=== PATIENT | male | born 1980 | race Asian ===

== ENCOUNTER 2018-04-27 11:19 | Inpatient (IN) | payer OTHER ==
[~2018-04-27] VITALS: Ht 165.1 cm; Wt 67.6 kg
[2018-04-27] MEDS ORDERED: KETOROLAC TROMETHAMINE 30 MG/ML VIAL IV STA (11:52)
[2018-04-27] MEDS ORDERED: SODIUM CHLORIDE 0.9% 1000ML 1,000 ML IV ONE (12:00)
--- NOTE | 2018-04-27 12:51 | Diagnostic Imaging Report ---
t EXAMINATION: CHEST 2 VIEWS INDICATION: Fever, cough. COMPARISON: None FINDINGS: TUBES and LINES: None. LUNGS: Lungs are well inflated. There is no evidence of pneumonia or pulmonary edema. Mild bronchial wall thickening. PLEURA: No pleural effusion or pneumothorax. HEART AND MEDIASTINUM: The cardiomediastinal silhouette is unremarkable. BONES AND SOFT TISSUES: No acute osseous abnormality. UPPER ABDOMEN: No free air under the diaphragm. Status post cholecystectomy. IMPRESSION: No evidence of pneumonia. Mild bronchial wall thickening which could reflect bronchitis in this patient with cough. Signed by: Dr. Sheree Avalos MD on 04/27/2018 12:48 PM
[2018-04-27 13:19] LABS: BASOPHILS % 0.4 % (0.0-1.0); EOSINOPHILS # (AUTO) 0.1 (0.0-0.4); EOSINOPHILS % 2.1 % (0.0-6.0); HEMATOCRIT 45.7 % (38.2-49.6); HEMOGLOBIN 15.3 g/dL (14.0-18.0); LYMPHOCYTES # (AUTO) 1.8 (1.0-3.2); MEAN CORPUSCULAR HEMOGLOBIN 30.2 pg (28-32); MEAN CORPUSCULAR HGB CONC 33.5 g/dL (31-35); MEAN CORPUSCULAR VOLUME 90.1 fL (81-99); MONOCYTES # (AUTO) 0.5 (0.2-0.8); MONOCYTES % 9.5 % (4.4-11.3); NEUTROPHILS # (AUTO) 2.8 (2.1-6.9); NEUTROPHILS % 53.8 % (38.7-80.0); PLATELET COUNT 193 x10e3/uL (140-360); RED BLOOD COUNT 5.07 x10e6/uL (4.3-5.7); RED CELL DISTRIBUTION WIDTH 12.3 % (11.7-14.4)
[2018-04-27 13:33] LABS: STREPTOCOCCUS GRP A ANTIGEN NEGATIVE (NEGATIVE)
[2018-04-27 13:35] LABS: INFLUENZAE A&B ANTIGEN (RAPID) NEGATIVE (NEGATIVE)
[2018-04-27 13:37] LABS: ALANINE AMINOTRANSFERASE 25 IU/L (0-55); ALBUMIN 4.2 g/dL (3.5-5.0); ALBUMIN/GLOBULIN RATIO 0.9 (0.8-2.0); ALKALINE PHOSPHATASE 93 IU/L (40-150); ANION GAP 17.1 mmol/L (8-16); BLOOD UREA NITROGEN 13 mg/dL (7-26); BUN/CREATININE RATIO 13 (6-25); CALCIUM 9.4 mg/dL (8.4-10.2); CARBON DIOXIDE 24 mmol/L (22-29); CHLORIDE 101 mmol/L (98-107); CREATININE, SERUM 0.97 mg/dL (0.72-1.25); EST GLOMERULAR FILTRATION RATE > 60 ML/MIN (60-); GLUCOSE 78 mg/dL (74-118); POTASSIUM 4.1 mmol/L (3.5-5.1); SODIUM 138 mmol/L (136-145)
[2018-04-27] MEDS ORDERED: SODIUM CHLORIDE FLUSH 10 ML SYR INJ PRN (17:15)
[2018-04-27] MEDS ORDERED: ONDANSETRON HCL INJ 2MG/ML 2ML 2 MG/ML VIAL IV PRN (17:15)
--- OUTSIDE RECORDS SUMMARY | 2018-04-27 17:42 | XMS REPORT ---
Author Author [facility] Address Unknown Phone Unavailable Care Team Providers Care Customer Service Attendant Name Role Phone Brandan CONTRERAS Unavailable Unavailable Problems This patient has no known problems. Allergies, Adverse Reactions, Alerts This patient has no known allergies or adverse reactions. Medications This patient has no known medications. Results Test Description Test Time Test Comments Text Results Atomic Results Result Comments CHEST 2 VIEWS 2018-04-27 12:46:00 [place] [id number] Patient Name: PING RYAN JR MR #: [id number] : 1980 Age/Sex: 37/M Req #: [id number] Adm Physician: Ordered by: NITHYA CONTRERAS MD Report #: [id number] Location: ER Room/Bed: Procedure: [id number] DX/CHEST 2 VIEWS Exam Date: 04/27/18 Exam Time: 1210 REPORT STATUS: Signed t EXAMINATION: CHEST 2 VIEWS INDICATION: Fever, c ough. COMPARISON: None FINDINGS: TUBES and LINES: None. LUNGS: Lungs are well inflated. There is no evidence of pneumonia or pulmonary edema. Mild bronchial wall thickening. PLEURA: No pleural effusion or pneumothorax. HEART AND MEDIASTINUM: The cardiomediastinal silhouette is unremarkable. BONES AND SOFT TISSUES: No acute osseous abnormality. UPPER ABDOMEN: No free air under the diaphragm. Status post cholecystectomy. IMPRESSION: No evidence of pneumonia. Mild bronchial wall thickening which could reflect bronchitis in this patient with cough. Signed by: Dr. Regina Arizmendi MD on 04/27/2018 12:48 PM Dictated By: REGINA ARIZMENDI MD [id number] Transcribed By: XIOMARA on 04/27/18 1248 COPY TO: NITHYA CONTRERAS MD
[2018-04-27] MEDS ORDERED: CLARITHROMYCIN 500 MG TAB PO NR (19:00)
[2018-04-28] VITALS (9 sets, daily range): BP systolic 112–144; BP diastolic 57–85
--- NOTE | 2018-04-28 02:28 | History and Physical ---
CHIEF COMPLAINT: A 37-year-old comes in with acute lymphadenitis of the face and neck and also with fever. HISTORY OF PRESENTING ILLNESS: Mr. Elkin Chester, who is a 37-year-old gentleman with no medical history, was in usual state of health until about 5 days prior to admission. 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 PAST MEDICAL HISTORY: No prior pending history. FAMILY HISTORY: Nonsignificant. MEDICATIONS: Nonsignificant and noncontributory. PAST SURGICAL HISTORY: Noncontributory. REVIEW OF SYSTEMS: Negative for chest pain. No shortness of breath. No nausea, vomiting, or diarrhea. No constipation. No rectal bleeding. No hematochezia. No hematemesis. Positive for tenderness in the left neck area with lymphadenitis and also fever. PHYSICAL EXAMINATION: GENERAL: The patient is alert and oriented x3. HEENT: Normocephalic and atraumatic. VITAL SIGNS: Temperature is 100.8, pulse of 94, respirations of 18, and blood pressure is 145/95. HEENT: Normocephalic and atraumatic. Pupils are reactive to light and accommodation. NECK: With acute lymphadenitis in the anterior and posterior cervical lymph nodes and they are tender and fluctuant lymph nodes. LUNGS: Clear to auscultation bilaterally. CHEST: S1 and S2 normal. Regular rhythm. ABDOMEN: Nontender and nondistended. EXTREMITIES: No clubbing, no cyanosis, and no edema. LABORATORY VALUES: The patient's initial white count is 5.18 and hemoglobin of 15.3, no left shift present. Chemistry; sodium 138, potassium 4.1, anion gap 17.1, BUN is 13, and creatinine is 0.97. , mono screen is negative. Influenza negative. Mumps pending. Group A strep is negative and TB test is pending too. 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 Monoscreen has been negative. The patient has been treated with Biaxin for acute lymphadenitis. We will continue the same. Awaiting test for his mumps. Further recommendation and clinical course, we will continue to monitor the patient. The patient is aware that the mumps serology will take about 2 to 3 days before it comes back. MD ARACELI Escobar/MODL /[id number]
[2018-04-28 05:04] LABS: BASOPHILS % 0.4 % (0.0-1.0); EOSINOPHILS # (AUTO) 0.1 (0.0-0.4); EOSINOPHILS % 2.5 % (0.0-6.0); HEMATOCRIT 38.7 % (38.2-49.6); HEMOGLOBIN 13.6 g/dL (14.0-18.0); LYMPHOCYTES # (AUTO) 2.2 (1.0-3.2); LYMPHOCYTES % 38.4 % (18.0-39.1); MEAN CORPUSCULAR HEMOGLOBIN 31.9 pg (28-32); MEAN CORPUSCULAR HGB CONC 35.1 g/dL (31-35); MEAN CORPUSCULAR VOLUME 90.6 fL (81-99); MONOCYTES # (AUTO) 0.5 (0.2-0.8); MONOCYTES % 9.6 % (4.4-11.3); NEUTROPHILS # (AUTO) 2.8 (2.1-6.9); NEUTROPHILS % 48.9 % (38.7-80.0); PLATELET COUNT 173 x10e3/uL (140-360); RED BLOOD COUNT 4.27 x10e6/uL (4.3-5.7); RED CELL DISTRIBUTION WIDTH 12.2 % (11.7-14.4)
[2018-04-28 05:49] LABS: ANION GAP 17.9 mmol/L (8-16); BLOOD UREA NITROGEN 13 mg/dL (7-26); BUN/CREATININE RATIO 14 (6-25); CALCIUM 8.9 mg/dL (8.4-10.2); CARBON DIOXIDE 20 mmol/L (22-29); CHLORIDE 101 mmol/L (98-107); CREATININE, SERUM 0.94 mg/dL (0.72-1.25); EST GLOMERULAR FILTRATION RATE > 60 ML/MIN (60-); GLUCOSE 83 mg/dL (74-118); POTASSIUM 3.9 mmol/L (3.5-5.1); SODIUM 135 mmol/L (136-145)
[2018-04-28] MEDS: CLARITHROMYCIN 500 MG TAB PO SCH ×2 (09:45→17:23)
[2018-04-28] MEDS ORDERED: DIFLUCAN200 MG PO (12:20)
[2018-04-28 15:34] LABS: HIV 1&2 AB SCREEN NON-REACTIVE (NONREACTIVE)
[2018-04-28] MEDS: SODIUM CHLORIDE 0.9% 1000ML 1,000 ML IV SCH (15:51)
[2018-04-28] MEDS: DOXYCYCLINE 100MG/NS 100ML 100 ML IV SCH (15:51)
[2018-04-28] MEDS: FAMOTIDINE 20 MG TAB PO SCH (22:50)
[2018-04-29] VITALS (9 sets, daily range): BP systolic 109–132; BP diastolic 63–81
[2018-04-29] MEDS: DOXYCYCLINE 100MG/NS 100ML 100 ML IV SCH (02:21)
--- NOTE | 2018-04-29 02:37 | Consultation ---
DATE OF CONSULTATION: . REASON FOR CONSULTATION: Fever. HISTORY OF PRESENT ILLNESS: This patient is a very pleasant 37-year-old [place] gentleman, who denies any past medical history. The patient comes in to the hospital with fever and chills for 3 days. 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 He got to the port, was found to have fever and chills while he was on the ship for the last 2 days. Besides the fever and chills, he denies any other complaints. There is no headache, visual changes, hearing changes, nausea, vomiting, diarrhea, no urgency, no frequency, no skin rash. He is telling me that he is feeling much better now. He is telling me that he did not have fever before, this is the first time he got fever. As I mentioned above, he is currently feeling better. PAST MEDICAL HISTORY: He denies. PAST SURGICAL HISTORY: He denies. ALLERGIES: NKA. SOCIAL HISTORY: There is . FAMILY HISTORY: Otherwise unremarkable. REVIEW OF SYSTEMS: At the present time, HEENT: Negative. PULMONARY: Negative. CARDIAC: Negative. GI: Negative. SKIN: Negative. All systems reviewed with the patient and they are all negative. LABORATORY DATA: Blood cultures negative for 24 hours. His white count 5.6, hemoglobin 13.6, hematocrit of 38.7, his platelets 173, the diff was normal. Sodium 135, potassium 3.9, creatinine 0.94. Liver enzymes within normal limits. His HIV was negative. Influenza A and B were negative. Group A was negative. The patient was started on Biaxin and doxycycline. PHYSICAL EXAMINATION: GENERAL: He is currently alert and oriented. VITAL SIGNS: T-max has been 100.9 on April 28. HEENT: . NECK: Supple. No JVD. No lymphadenopathy. No thyromegaly. CHEST: Clear bilateral. HEART: S1 and S2. . ABDOMEN: Soft. . EXTREMITIES: No edema. IMPRESSION: Fever, otherwise negative, seems to be resolved. He denies any complaints to me at the present time. I would suggest just to discontinue antibiotic and observe the patient clinically while we await for the blood culture. If he continues to improve, could be discharged home with no antibiotic and just supportive care and followup. We will follow with you. MD ISABEL Sandoval/ALFONSO /[id number]
[2018-04-29 07:32] LABS: BASOPHILS % 0.5 % (0.0-1.0); EOSINOPHILS # (AUTO) 0.1 (0.0-0.4); EOSINOPHILS % 2.9 % (0.0-6.0); HEMOGLOBIN 14.2 g/dL (14.0-18.0); LYMPHOCYTES # (AUTO) 1.8 (1.0-3.2); LYMPHOCYTES % 39.6 % (18.0-39.1); MEAN CORPUSCULAR HEMOGLOBIN 30.1 pg (28-32); MEAN CORPUSCULAR HGB CONC 33.8 g/dL (31-35); MONOCYTES # (AUTO) 0.5 (0.2-0.8); MONOCYTES % 11.1 % (4.4-11.3); NEUTROPHILS % 45.7 % (38.7-80.0); PLATELET COUNT 174 x10e3/uL (140-360); RED BLOOD COUNT 4.72 x10e6/uL (4.3-5.7); RED CELL DISTRIBUTION WIDTH 12.1 % (11.7-14.4)
[2018-04-29 08:10] LABS: ANION GAP 8.9 mmol/L (8-16); BLOOD UREA NITROGEN 10 mg/dL (7-26); BUN/CREATININE RATIO 11 (6-25); CALCIUM 9.3 mg/dL (8.4-10.2); CARBON DIOXIDE 26 mmol/L (22-29); CHLORIDE 103 mmol/L (98-107); CREATININE, SERUM 0.91 mg/dL (0.72-1.25); EST GLOMERULAR FILTRATION RATE > 60 ML/MIN (60-); GLUCOSE 93 mg/dL (74-118); POTASSIUM 3.9 mmol/L (3.5-5.1); SODIUM 134 mmol/L (136-145)
[2018-04-29] MEDS: FAMOTIDINE 20 MG TAB PO SCH ×2 (08:39→20:23)
[2018-04-29] MEDS: SODIUM CHLORIDE 0.9% 1000ML 1,000 ML IV SCH (08:47)
[2018-04-30] VITALS: BP 129/80
[2018-04-30] MEDS: SODIUM CHLORIDE 0.9% 1000ML 1,000 ML IV SCH (01:34)
[2018-04-30 04:00] VITALS: BP 114/67
[2018-04-30] MEDS ORDERED: FAMOTIDINE20 MG PO (06:16)
[2018-04-30] MEDS ORDERED: VITAMIN C500 MG PO (06:17)
[2018-04-30 07:31] VITALS: BP 121/78
[2018-04-30 07:46] VITALS: BP 121/78
[2018-04-30] MEDS: FAMOTIDINE 20 MG TAB PO SCH (08:11)
[2018-04-30 11:40] VITALS: BP 141/74
[2018-04-30 16:00] VITALS: BP 113/66
== END 2018-04-30 16:19 | disposition home or self-care (01) | DRG 202 ==
LOC: ER 11:19 → ERHOLD 17:39 → MED/SURG2 21:49
PROVIDERS: ADMIT Internal Medicine; ATTEND Internal Medicine
DX: J20.9 Acute bronchitis, unspecified (principal); E87.2 Acidosis; B34.9 Viral infection, unspecified; L04.0 Acute lymphadenitis of face, head and neck; F17.210 Nicotine dependence, cigarettes, uncomplicated
CPT/HCPCS: 36415; 71046; 80048; 80053; 83518; 85025; 86308; 86735; 87040; 87070; 87390; 87400; 87536; 99284; G0433; G0435; J1885; J7030